=== PATIENT | female | born 1940 | race Caucasian/White ===

== ENCOUNTER 2021-05-04 09:58 | Outpatient (RCR) | payer MEDICARE, OTHER, SELFPAY ==
[2021-05-04] MEDS: ACETAMINOPHEN 325 MG TABLET 650 MG PO (15:21)
[2021-05-04] MEDS: diphenhydrAMINE HCl CAP 25 MG CAPSULE PO (15:22)
[2021-05-04] MEDS: FAMOTIDINE 20 MG TABLET PO (15:22)
[2021-05-04 15:26] VITALS: BP 128/51; PULSE 66; RESP 20; TEMP 37.7; O2SAT 92
[2021-05-04 16:22] VITALS: BP 121/75
== END 2021-05-04 17:00 ==
LOC: AMCINF 09:58
PROVIDERS: PCP Nurse Practitioner; Visit Provider Internal Medicine Hematology & Oncology
DX: U07.1 COVID-19 (principal); I10 Essential (primary) hypertension
CPT/HCPCS: A9270; M0243; Q0244